=== PATIENT | female | born 1970 | race African-American/Black ===

== ENCOUNTER 2022-12-06 08:35 | Emergency (ER) | payer MEDICAID, OTHER ==
[~2022-12-06] VITALS: Ht 160 cm; Wt 54.0 kg
[2022-12-06] MEDS ORDERED: IBUPROFEN 400MG TABLET PO ONE (09:00)
[2022-12-06 09:10] VITALS: BP 162/82
== END 2022-12-06 09:16 ==
LOC: ER 08:35
DX: R52 Pain, unspecified (principal); Z02.79 Encounter for issue of other medical certificate; Z87.891 Personal history of nicotine dependence
CPT/HCPCS: 99283